=== PATIENT | male | born 1985 | race Caucasian/White ===

== ENCOUNTER 2024-11-10 10:32 | Emergency (ER) | payer MEDICARE, MEDICAID ==
[~2024-11-10] VITALS: Ht 175.3 cm; Wt 79.5 kg
[2024-11-10] MEDS: HYDROmorphone 1 mg/ml syringe IV ONE (10:56)
[2024-11-10 11:15] LABS: BASOPHILS # (AUTO) 0.1 X10'3 (0-0.2); BASOPHILS % (AUTO) 0.8 % (0-1); EOSINOPHILS # (AUTO) 0.1 X10'3 (0-0.9); EOSINOPHILS % (AUTO) 0.8 % (0-6); HEMATOCRIT 42.5 % (42.0-52.0); LYMPHOCYTES # (AUTO) 2.8 X10'3 (1.1-4.8); LYMPHOCYTES % (AUTO) 37.7 % (21-51); MEAN CORPUSCULAR HEMOGLOBIN 29.9 PG (27.0-31.0); MEAN CORPUSCULAR HGB CONC 35.2 g/dL (33.0-36.5); MEAN CORPUSCULAR VOLUME 85.1 FL (78-98); MONOCYTES # (AUTO) 0.6 X10'3 (0-0.9); MONOCYTES % (AUTO) 7.9 % (2-12); NEUTROPHILS # (AUTO) 3.9 X10'3 (1.8-7.7); NEUTROPHILS % (AUTO) 52.8 % (42-75); PLATELET COUNT 383 X10'3 (140-440); RED CELL DISTRIBUTION WIDTH 12.6 % (11.5-14.5); WHITE BLOOD COUNT 7.5 X10'3 (4.5-11.0)
[2024-11-10 11:19] LABS: ALANINE AMINOTRANSFERASE 25 U/L (12-78); ALBUMIN 4.2 G/DL (3.4-5.0); ALBUMIN/GLOBULIN RATIO 1.3 (1.1-1.5); ALKALINE PHOSPHATASE 67 IU/L (46-116); ANION GAP 8 (8-16); ASPARTATE AMINO TRANSFERASE 14 U/L (10-37); BILIRUBIN,TOTAL 0.2 MG/DL (0.1-1.0); BLOOD UREA NITROGEN 12 MG/DL (7-18); BUN/CREATININE RATIO 10.2 (10.0-20.0); CALCIUM 8.7 MG/DL (8.5-10.1); CHLORIDE 105 MMOL/L (99-107); CREATININE 1.18 MG/DL (0.60-1.10); GLUCOSE 94 MG/DL (70-104); POTASSIUM 4.3 MMOL/L (3.5-5.1); SODIUM 142 MMOL/L (135-145); TOTAL CARBON DIOXIDE 28.6 MMOL/L (24-32); TOTAL PROTEIN 7.4 G/DL (6.4-8.2); eCRCL 83 ML/MIN; eGFR 68 ML/MIN
[2024-11-10] MEDS: ondansetron/PF 4mg/2ml inj IV ONE (11:43)
--- NOTE | 2024-11-10 11:44 | RADIOLOGY REPORT ---
Indication: RLQ pain, R flank pain Technique: CT axial images of the abdomen and pelvis are obtained without intravenous contrast. Angelo nal and sagittal reformats were obtained. Radiation Dose Information: CTDI volume is 16 mGy. Dose-length product is 802 mGy*cm Comparison: None FINDINGS: Lung bases demonstrate no pleural effusion Adrenal glands, spleen pancreas unremarkable in shape. 1.7 cm left hepatic lobe hypodensity. No CT e vidence for cholelithiasis. There is mild right hydroureteronephrosis secondary to a mid right ureteral calculus measuring 3 mm. Stomach is partially distended. Small bowel loops are normal in caliber. Colonic diverticular disease. Moderate volume stool in the colon. Abdominal aortic atherosclerotic disease. Bladder partially distended. No free pelvic fluid. No ingu inal lymphadenopathy. [id number] thoracolumbar degenerative disc disease IMPRESSION: Mild right hydroureteronephrosis secondary to a mid right ureteral calculus measuring 3 mm. Moderate volume stool in the colon. Left hepatic lobe hypodense lesion measuring 1.7 cm, possibly fatty infiltration. Recommend multipha sic MRI abdomen with and without contrast, which can be done in a nonemergent setting.
--- NOTE | 2024-11-10 12:52 | Physician Documentation ---
History of Present Illness Chief Complaint: Abdominal Pain Stated Complaint: FLANK PAIN Time Seen by MD: 10:45 Mode of Arrival: EMS HPI 39 year old male BIB EMS with R flank/RLQ pain, excruciating, woke up with it this morning. Received toradol en route. Denies fever, N/V/D, urinary symptoms. Medication Reconciliation Allergies: Coded Allergies: lactulose (Verified Allergy, Unknown, 11/10/24) propoxyphene (Verified Allergy, Unknown, 11/10/24) Review of Systems All Other Systems at this time: Reviewed and Negative Physical Exam Vital Signs: Temperature: 97.6, Source: Oral, Heart Rate: 59, Respiratory Rate: 13, BP: 103/69, Pulse Oximetry: 97, Weight: 79.500 Oxygen Flow Rate: 0 Physical Exam Gen: +distressed, writhing HEENT: PERRL, moist oral mucosa, EOMI Pulmonary: No respiratory distress GI: nondistended, soft, +TTP RLQ, no guarding, no rebound MSK: no deformity Skin: w/d/i, no rash Neuro: alert, nonfocal Psych: normal affect Progress Results/Orders Results/Orders Orders - NELLI TREVINO MD Urinalysis, Cult If Indicated (11/10/24 10:59) Ct Abdomen Pelvis (11/10/24 11:18) Completed Orders - NELLI TREVINO MD Hydromorphone 1 Mg/Ml/Pf (Dilaudid Inj.) (11/10/24 10:45) Ondansetron Inj. (Zofran 4mg/2ml Vial) (11/10/24 10:45) Cbc/Diff (11/10/24 10:59) CMP (11/10/24 10:59) Ct Abdomen Pelvis (11/10/24 11:18) Medications Received in ER Medications (Trade) Dose Ordered Sig/Susanne Route PRN Reason Start Time Stop Time Status Last Admin Dose Admin (Dilaudid inj.) 1 mg ONCE ONCE IV 11/10/24 10:45 11/10/24 10:46 DC 11/10/24 10:56 1 MG (Zofran 4mg/2ml vial) 4 mg ONCE ONCE IV 11/10/24 10:45 11/10/24 11:01 DC 11/10/24 11:43 4 MG Vital Signs 11/10/24 11/10/24 11/10/24 11/10/24 10:36 11:01 11:30 12:21 Temp 97.6 Pulse 75 96 59 Resp 25 17 13 B/P (MAP) 131/70 100/67 (78) 103/69 (80) Pulse Ox 100 95 97 O2 Flow Rate 0 0 0 Laboratory Tests Test 11/10/24 10:42 White Blood Count 7.5 Red Blood Count 5.00 Hemoglobin 15.0 Hematocrit 42.5 Mean Corpuscular Volume 85.1 Mean Corpuscular Hemoglobin 29.9 Mean Corpuscular Hemoglobin Concent 35.2 Red Cell Distribution Width 12.6 Platelet Count 383 Mean Platelet Volume 8.0 Neutrophils (%) (Auto) 52.8 Lymphocytes (%) (Auto) 37.7 Monocytes (%) (Auto) 7.9 Eosinophils (%) (Auto) 0.8 Basophils (%) (Auto) 0.8 Neutrophils # (Auto) 3.9 Lymphocytes # (Auto) 2.8 Monocytes # (Auto) 0.6 Eosinophils # (Auto) 0.1 Basophils # (Auto) 0.1 CBC Comment Sodium Level 142 Potassium Level 4.3 Chloride Level 105 Carbon Dioxide Level 28.6 Anion Gap 8 Blood Urea Nitrogen 12 Creatinine 1.18 H Estimated GFR/1.73 m2 68 BUN/Creatinine Ratio 10.2 Glucose Level 94 Calcium Level 8.7 Total Bilirubin 0.2 Aspartate Amino Transf (AST/SGOT) 14 Alanine Aminotransferase (ALT/SGPT) 25 Alkaline Phosphatase 67 Total Protein 7.4 Albumin 4.2 Globulin 3.2 Albumin/Globulin Ratio 1.3 Chemistry Comments Medical Decision Making Findings 39 year old male with pain that appears consistent with a kidney stone. Exam and labs nonspecific, CT interpreted by me demonstrated R-sided ureteral stone approx. 3mm in size. Fluids, meds, improved symptoms on reevaluation, will discharge with pain medications and return precautions. Differential Dx:Considerations: Include: Appendicitis, Bowel obstruction, Cholelithasis, Gastritis/PUD, Gastroenteritis, Hepatitis, Pancreatitis, Trauma, intraabdominal, Urinary obstruction Departure Disposition: 01 HOME / SELF CARE / HOMELESS Impression: Primary Impression: Kidney stone Condition: Stable Discharge Instructions: Kidney Stones Referrals: NO PRIMARY CARE PROVIDER (PCP) Education Educated: Patient Educated regarding: diagnosis, treatment, prognosis, need for follow up Signature Scribe Signature: . Attestation: . NELLI TREVINO MD Nov 10, 2024 12:52
[2024-11-10] MEDS ORDERED: HYDR-3965 PO (12:55)
[2024-11-10 13:55] VITALS: BP 103/63; PULSE 62; RESP 13; TEMP 98.2; O2SAT 99
== END 2024-11-10 13:57 | disposition home or self-care (01) ==
LOC: ER 10:32
DX: N20.0 Calculus of kidney (principal)
CPT/HCPCS: 36415; 74176; 80053; 85025; 96374; 96375; 99285; J1171; J2405

== ENCOUNTER 2025-01-24 07:45 | Outpatient (CLI) | payer MEDICARE, MEDICAID ==
--- NOTE | 2025-01-24 08:53 | RADIOLOGY REPORT ---
Exam: CT CT ABDOMEN PELVIS History: R URETERAL STONE COMPARISON: CT CT ABDOMEN PELVIS on DOS: 11/10/24 Technique: Multidetector spiral CT of the abdomen and pelvis was performed from lung bases to pubic s ymphysis. Intravenous contrast was administered during this examination. Portal venous imaging was o btained. Axial, coronal and sagittal multiplanar reformats were performed by the technologist on a [employer] workstation. Radiation Dose : 1. Abdomen/Pelvis: CTDIvol 18mGy, DLP 900.02 mGy*cm. Findings: Lung Bases: No acute or significant lung base finding. Normal heart size. No pleural or pericardial effusion. Liver: The liver is normal in size. No focal lesions. Normal hepatic vascular enhancement. Gallbladder and Biliary Tree: Unremarkable Spleen: Unremarkable Pancreas: The pancreas is normal in appearance without focal lesions or abnormal enhancement. Adrenal Glands: Unremarkable Kidneys: No hydronephrosis. Bladder: Unremarkable Bowel: The stomach is grossly normal in appearance. Moderate colonic stool. Mild colonic bowel wall t hickening involving the descending and rectosigmoid colon. The appendix is not visualized; however, n o secondary findings of acute appendicitis identified. Ascites: Absent Lymphadenopathy: No mesenteric, retroperitoneal or periportal lymphadenopathy. Abdominal Wall and Mesentery: Unremarkable. Vasculature: The visualized abdominal aorta is normal in size and caliber. Abdominal and pelvic vess els demonstrate normal enhancement. Pelvic Organs: Unremarkable Musculoskeletal: No aggressive focal bony lesions, acute fractures or dislocation. IMPRESSION: No hydronephrosis or ureteral stone or renal stone. Moderate volume colonic stool. Possible mild colitis involving the descending and rectosigmoid colon.
== END 2025-01-24 23:59 | disposition home or self-care (01) ==
LOC: RAD 07:45
PROVIDERS: ATTEND Family Medicine
DX: N20.1 Calculus of ureter (principal); K76.9 Liver disease, unspecified
CPT/HCPCS: 74176

== ENCOUNTER 2025-02-12 11:39 | Outpatient (CLI) | payer MEDICARE, MEDICAID ==
[2025-02-12] MEDS ORDERED: GADOTERATE MEGLUMINE 7.5 MMOL/15 ML VIAL IV ONE (14:07)
--- NOTE | 2025-02-12 14:24 | RADIOLOGY REPORT ---
[id number] MR MRI ABDOMEN of the abdomen without and with contrast Attending Name: SHAAN MAJOR COMPARISON: None INDICATION: LIVER LESION, LEFT LOBE reported on CT study done without contrast 10/2024 TECHNIQUE: MR was performed with a body: 1.5 ashlyn magnet axial and coronal T1 and T2 weighted images obtained prior to and following IV administration 15 cc of Clariscan Three-dimensional MRCP was performed using maximum intensity projection reconstruction on an independent workstation under concurrent supervision. FINDINGS: Visualized lower thorax: Limited imaging of the thorax demonstrates no suspicious pleural or parenchymal disease. Liver: Normal in morphology and signal intensity. No masses are seen within the liver. On postcontrast images no areas of abnormal enhancement. Gallbladder: No evidence of cholelithiasis or gallbladder wall thickening. Biliary system: There is no intrahepatic or extrahepatic bile duct dilatation. No filling defect to suggest choledocholithiasis. Spleen: Normal in morphology and signal intensity. Pancreas: Normal in morphology and signal intensity. Adrenal glands: Normal in morphology and signal intensity. Kidneys: The kidneys are symmetric in size and appearance. No hydronephrosis. Urinary tract: The included ureters, as visualized, are normal in course and caliber. GI tract: The included portions of the bowel are within normal limits. Lymph nodes: No enlarged lymph nodes. Peritoneum: No ascites. Musculoskeletal: The bone marrow signal intensity is within normal limits. IMPRESSION: 1. No evidence of hepatic mass on this exam. It is felt that lesion reported on prior noncontrast CT may have represented an area of focal fatty sparing. 2. No gallstones or biliary disease.
== END 2025-02-12 23:59 | disposition home or self-care (01) ==
LOC: MRI 11:39
PROVIDERS: ATTEND Family Medicine
DX: N20.1 Calculus of ureter (principal); K76.9 Liver disease, unspecified
CPT/HCPCS: 74183; A9575